=== PATIENT | female | born 1950 | race Caucasian/White ===

== ENCOUNTER 2017-08-27 16:43 | Emergency (ER) | payer MEDICARE, BC ==
[2017-08-27 17:16] VITALS: BP 129/75
--- NOTE | 2017-08-27 17:24 | UC ---
UC General HPI - HPI Summary HPI Summary: PT IS C/O FREQUENT-BURNING URINATION AND LOWER ABDOMINAL DISCOMFORT, DESCRIBES A PRESSURE. NO FEVER, V/D. HAD A UTI ONCE IS PAST AND THINKS THIS IS THE SAME. - History of Current Complaint Chief Complaint: UCGU Stated Complaint: URINARY,LOW BACK PAIN Time Seen by Provider: 08/27/17 17:12 Hx Obtained From: Patient Onset/Duration: Gradual Onset Timing: Constant Pain Intensity: 5 Aggravating: NOTHING Alleviating: NOTHING Associated Signs & Symptoms: Positive: Dysuria. Negative: Fever - Allergy/Home Medications Allergies/Adverse Reactions: Allergies Allergy/AdvReac Type Severity Reaction Status Date / Time Sulfa (Sulfonamide Allergy Unknown Hives Verified 08/27/17 17:09 Antibiotics) Home Medications: Home Medications Aspirin 81 mg CHEW TAB* [Aspirin Low Dose TAB*] 81 mg PO DAILY 08/27/17 [ History Confirmed 08/27/17] Cetirizine* [ZyrTEC 10 MG TAB*] 10 mg PO DAILY 08/27/17 [History Confirmed 08/27] PMH/Surg Hx/FS Hx/Imm Hx - Additional Past Medical History Additional PMH: ALLERGIES - Surgical History Surgical History: Yes Surgery Procedure, Year, and Place: TONSILLECTOMY, HYSTERECTOMY, . RIGHT ANKLE FX WITH HARDWEAR - Family History Known Family History: Positive: None - Social History Occupation: Retired Lives: With Family Alcohol Use: Occasionally Substance Use Type: None Smoking Status (MU): Never Smoked Tobacco - Immunization History Vaccination Up to Date: Yes Review of Systems Constitutional: Negative Skin: Negative Eyes: Negative ENT: Negative Respiratory: Negative Cardiovascular: Negative Gastrointestinal: Negative Genitourinary: Dysuria, Frequency, Urgency Motor: Negative Neurovascular: Negative Musculoskeletal: Negative Neurological: Negative Psychological: Negative Is Patient Immunocompromised?: No All Other Systems Reviewed And Are Negative: Yes Physical Exam Triage Information Reviewed: Yes Appearance: Well-Appearing Vital Signs: Initial Vital Signs Temp 98.1 F 08/27/17 17:10 Pulse 76 08/27/17 17:10 Resp 16 08/27/17 17:10 BP 129/75 08/27/17 17:10 Pulse Ox 100 08/27/17 17:10 Eyes: Positive: Conjunctiva Clear ENT: Positive: Normal ENT inspection Neck: Positive: Supple, Nontender, No Lymphadenopathy Respiratory: Positive: Lungs clear, Normal breath sounds Cardiovascular: Positive: RRR, No Murmur Abdomen Description: Positive: Nontender, No Organomegaly, Soft. Negative: CVA Tenderness (R), CVA Tenderness (L), Distended, Guarding Bowel Sounds: Positive: Present Musculoskeletal: Positive: ROM Intact Neurological: Positive: Alert Psychological: Positive: Age Appropriate Behavior Skin Exam: Normal Diagnostics - Laboratory Diagnostic Studies Completed/Ordered: U/A= 2+ LEUKS AND 1+ BLOOD. CULTURE IS PENDING Course/Dx - Course Course Of Treatment: non toxic, no acute abdomen. - Differential Dx - Multi-Symptom Provider Diagnoses: urinary tract infection Discharge - Sign-Out/Discharge Documenting (check all that apply): Discharge/Admit/Transfer - Discharge Plan Condition: Stable Disposition: HOME Prescriptions: Cephalexin CAP* [Keflex CAP*] 500 mg PO BID #[id number] Patient Education Materials: Urinary Tract Infection in Women (DC) Referrals: [facility] [place] [facility] [Outside] Additional Instructions: call on tuesday, they will help you find a primary doctor - Billing Disposition and Condition Condition: STABLE Disposition: HOME
== END 2017-08-27 17:41 | disposition home or self-care (01) ==
LOC: UCCORT 16:43
DX: N39.0 Urinary tract infection, site not specified (principal); Z88.2 Allergy status to sulfonamides; Z79.82 Long term (current) use of aspirin
CPT/HCPCS: 81003; 87086; 99202; G0463